=== PATIENT | female | born 1940 | race Caucasian/White ===

== ENCOUNTER → 2017-05-29 | Outpatient (CLI) | payer MEDICARE ==
[~2017-05-29] MED LIST: CENTCHW3 PO; LEVO.075 PO; META28.34 PO; TETR0.052 EACH EYE; TETR0.052 LEFT EYE; THER650C PO; VIVE0.05 T-DERMAL
[2017-05-29 12:29] LABS: AUTOMATED NEUTROPHIL # 3.7 TH/MM3 (1.8-7.7); BASOPHIL % 0.6 % (0.0-2.0); EOSINOPHIL # 0.1 TH/MM3 (0-0.4); EOSINOPHIL % 1.9 % (0.0-4.0); HEMATOCRIT 40.4 % (35.0-46.0); HEMO FLAGS DIFF FINAL; LYMPH % 22.3 % (9.0-44.0); LYMPHOCYTE # 1.3 TH/MM3 (1.0-4.8); MEAN CELL VOLUME 90.5 FL (80.0-100.0); MEAN CORPUSCULAR HEMOGLOBIN 29.9 PG (27.0-34.0); MONO % 9.8 % (0.0-8.0); NEUT % 65.4 % (16.0-70.0); PLATELET COUNT 240 TH/MM3 (150-450); RED BLOOD COUNT 4.47 MIL/MM3 (4.00-5.30); RED CELL DISTRIBUTION WIDTH 13.8 % (11.6-17.2); WHITE BLOOD COUNT 5.7 TH/MM3 (4.0-11.0)
[2017-05-29 12:40] LABS: ANION GAP 3 MEQ/L (5-15); AST (GOT) 23 U/L (15-37); BICARBONATE 32.1 MEQ/L (21.0-32.0); BLOOD UREA NITROGEN 16 MG/DL (7-18); CHLORIDE 105 MEQ/L (98-107); GLOMERULAR FILTRATION RATE 88 ML/MIN (>89); GLUCOSE,FASTING 114 MG/DL (74-99); POTASSIUM 3.7 MEQ/L (3.5-5.1); SODIUM (NA) 140 MEQ/L (136-145)
[2017-05-29 12:43] LABS: ALKALINE PHOSPHATASE 75 U/L (45-117); ALT (GPT) 36 U/L (10-53); TOTAL BILIRUBIN ADULT 0.5 MG/DL (0.2-1.0)
[2017-05-29 12:47] LABS: BACTERIA, URINE RARE /hpf; BLOOD, URINE NEG (NEG); COMMENT (UR) CULT NOT INDICATED; CULTURE IF INDICATED CULT NOT INDICATED; GLUCOSE,URINE NEG (NEG); KETONE, URINE NEG (NEG); NITRITE,URINE NEG (NEG); PH, URINE 6.5 (5.0-8.5); SQUAMOUS EPITHELIAL CELL URINE <1 /hpf (0-5); URINE COLOR LIGHT-YELLOW (YELLW/STRAW)
--- NOTE | 2017-05-30 17:04 | EKG ---
Date Performed: 05/29/2017 Time Performed: 11:41:10 PTAGE: 77 years EKG: SINUS BRADYCARDIA SEPTAL MYOCARDIAL INFARCTION, OF INDETERMINATE AGE ABNORMAL ECG Since PREVIOUS TRACING , no significant change noted PREVIOUS TRACIN02/13/2016 12.07 DOCTOR: Buffy Dyson Interpretating Date/Time 05/30/2017 17:02:54
== END ==
LOC: CPRE 11:20
PROVIDERS: ATTEND Obstetrics & Gynecology Gynecology
DX: Z01.810 Encounter for preprocedural cardiovascular examination (principal); Z01.812 Encounter for preprocedural laboratory examination; N81.11 Cystocele, midline; R94.31 Abnormal electrocardiogram [ECG] [EKG]
CPT/HCPCS: 36415; 80053; 81001; 85025; 93005

== ENCOUNTER → 2017-06-04 | Day surgery (SDC) | payer MEDICARE ==
--- NOTE | 2017-05-29 11:41 | MH ---
cc: SKYLAR MONTEIRO MD, ROXY DATE OF ADMISSION: 06/04/2017 DATE OF 1940 REASON FOR ADMISSION Pelvic repair, possible suspension. HISTORY OF PRESENT ILLNESS The patient is a 76-year-old white female, 2, para 2 who has had multiple prior vaginal reconstructive procedures. 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 She is symptomatic and wants to proceed with repair. PAST MEDICAL HISTORY 1. 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 2. Adult onset diabetes with A1c below 7. 3. Hypertension. 4. Hypoparathyroidism. 5. Mitral valve prolapse. MEDICATIONS 1. Synthroid 75 mcg daily. 2. Estradiol patch q. week. ALLERGIES LACTOSE. LATEX. PAST SURGICAL HISTORY 1. Vaginal hysterectomy. 2. Anterior and posterior repair. 3. Shunt placement for hydrocephalus. 4. Vaginal repair and suspension in 2015. OB HISTORY Two vaginal deliveries. 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 Hysterectomy for benign condition. FAMILY HISTORY Breast cancer in her sister, otherwise unremarkable. SOCIAL HISTORY Does not smokes, use alcohol or drugs. 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 Good social support. REVIEW OF SYSTEMS Some balance in memory issues related to hydrocephalus but these are minimal. No chest pain, orthopnea, PND. No nausea, vomiting, fever or chills. No vaginal bleeding or discharge. No change in bladder or bowel habits. PHYSICAL EXAMINATION VITAL SIGNS: She is afebrile with vital signs stable. Blood pressure is 150/70, height 5.3, weight 129, BMI is 2.2. GENERAL: The patient is alert and oriented, in no acute distress. No sign of cognitive dysfunction or depression. EXTREMITIES: No significant rash. Nonfocal. No DVT signs. PELVIC EXAM: In the office we note POP-Q score: Aa is +3. Point C is -1. Ap is -2. Genital hiatus is 8. Perineal body is 4. Total vaginal length is 10. Levator strength is 2/5. Secondary reflexes are decreased. Further exam under anesthesia. EXTREMITIES: Normal skin, without rashes. Non-focal. No DVT signs. ASSESSMENT Patient with symptomatic Stage III pelvic organ prolapse with a history of multiple prior procedures. The patient and I and her discussed at length the options for management and treatment. She has tried a pessary, with no result; she could not retain the pessary. She wants to maintain vaginal function so an obliterative procedure is not appropriate. We will attempt anterior compartment repair with a possible suspension if need be. She is aware of the risks, benefits and alternatives of the planned procedure including damage to surrounding organs, bleeding and infection. The failure of repair is relatively high here since her prior surgical history has been relatively poor. At this point we will use DVT prophylaxis with sequential compression device. We will use antibiotic prophylaxis with Ancef 2 grams. She has LATEX ALLERGIES so we will use latex protocol. The patient does have some baseline cognitive change related to her normal pressure hydrocephalus but I think she has made informed choice to proceed and is able to give informed consent At this point anticipate outpatient procedure. MD JOSESITO Taylor/SSB /11:09 AM /11:17 AM
[~2017-06-04] VITALS: Ht 160 cm; Wt 57.2 kg
[~2017-06-04] MED LIST changes: +*ENALAPRILAT 1.25 MG/ML VIAL PERIprocedural Use ONLY ONE; +*LABETALOL HCL 100 MG/20 ML VIAL PERIprocedural Use ONLY ONE; +ACETAMINOPHEN 1000 MG/100 ML 100 ML IV ONE; +CHLORHEXIDINE GLUCONATE 2 % 1 PACK (2 CLOTHS) TOPICAL PRN; +DEXAMETHASONE SOD PHOS 4 MG/ML VIAL IV ONE; +DO NOT ADM ANY ANTICOAGULANT DRUGS PRN; +FLUORESCEIN SOD 10% SOLN 500 MG/5 ML AMP ONE; +INSULIN HUMAN REGULAR 1,000 UNITS/10 ML VIAL SQ PRN; +KETOROLAC TROMETHAMINE 30 MG/ML (IVP) VIAL IV PUSH ONE; +KETOROLAC TROMETHAMINE 30 MG/ML (IVP) VIAL IV PUSH PRN; +LACTATED RINGER'S 1000 ML INJ 1,000 ML IV ONE; +LACTATED RINGER'S 1000 ML IV PRN; +LIDOCAINE 1.5%/EPINEPHrine 1:200,000 PF SOLN 10ML SDV INFIL ONE; +LIDOCAINE HCL 1% PF 5 ML AMPULE OTHER ONE; +METHYLENE BLUE 10 MG/ML VIAL OTHER ONE; +METOPROLOL TARTRATE 25 MG TAB PO PRN; +ONDANSETRON HCL 4 MG/2 ML VIAL IV PUSH ONE; +ONDANSETRON HCL 4 MG/2 ML VIAL IV PUSH PRN; +POVIDONE IODINE 5% (ANTISEPSIS KIT) 4 APPLICATIONS EACH NARE PRN; +PROPOFOL 200 MG/20 ML AMP IV ONE; +SODIUM CHLORID 0.9% 500 ML IV PRN; -TETR0.052 EACH EYE; +ceFAZolin 2 GM PREMIX 50 ML IV SCH; +ePHEDrine/NS 25 MG/5 ML SYR IV ONE; +traMADol HCL 50 MG TAB PO PRN
--- NOTE | 2017-06-04 13:26 | MP ---
cc: SKYLAR MONTEIRO MD DATE OF SURGERY 06/04/2017 PREOPERATIVE DIAGNOSES Pelvic organ prolapse anterior compartment predominant. 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 PROCEDURE 1. Sacrospinous ligament fixation right side with Prolene suture. 2. Anterior and posterior repair with perineorrhaphy and enterocele repair. 3. Diagnostic cystoscopy 4. 22 modifier in light of complexity of dissection, length of time of 50% greater than normal for dissection and repair and issues with distortion of anatomy. SURGEON Skylar Monteiro MD ANESTHESIA Laryngeal mask [employer] [place] staff x2 FLUIDS 1000 cc Crystalloid URINE OUTPUT 600 cc. FINDINGS External genitalia poorly estrogenized, POP-Q score: Aa is +3, Ap is +3. Point C is +4. Total vaginal length is 10. Genital hiatus is 8. Perineal body is 4. Following repair Aa is -3, Ap is -3. Point C is -8. Total vaginal length is 8. Genital hiatus is 4. Perineal body is 6. Cystoscopy following repair, normal trigone, good coaptation of urethra, ureteral orifices patent x2. Dome and base of bladder normal. Bladder capacity 600 cc. Rectal exam following repair is normal. SPECIMEN None COMPLICATIONS None DISPOSITION To Recovery Room stable. COUNTS Needle and sponge counts correct. DRAINS Sow catheter ANTIBIOTIC PROPHYLAXIS Ancef 2 grams DVT PROPHYLAXIS Sequential compression device. SUMMARY OF INDICATIONS FOR THE PROCEDURE Patient with a history of prior hysterectomy and prior vaginal suspension done approximately one year ago. She presented to the office with recurrence of anterior compartment prolapse predominant. She is scheduled for anterior compartment repair. With the patient under anesthesia, it was obvious that this was a more global defect involving not just the anterior compartment, but also the middle compartments well as posterior. The patient was prepped and draped in a fashion appropriate for the planned procedure. She was in the dorsal lithotomy position with careful attention paid to placement of legs in the stirrups to avoid undue stress to sensitive neurovascular structures. The above findings noted. Neurovascular integrity documented. Sow catheter was placed, methylene blue was instilled into the bladder. The complete procidentia of the vaginal vault was noted. We placed marking sutures at the apex on each side and then started with dissection of the posterior wall from the fourchette to the stay sutures. There was extensive scarring of enterocele sac to the vaginal mucosa. There is no damage to the rectum with dissection. The perirectal space on the right was identified. The ischial spine was palpated and the sacrospinous ligament identified. A Prolene suture was used to affix the vaginal vault to the sacrospinous ligament. Posterior repair was performed in standard fashion. The vaginal mucosa was trimmed. The vaginal mucosa was closed snf down and then we cinched down the suspension sutures. This gave us good elevation of the apex approximately 8 cm with some deviation to the right. The remainder of the posterior repair was performed with good result. Anterior compartment still had some defect. This was noted and infiltrated the mucosa with epinephrine/lidocaine solution. Reflected the paravesical tissues, anterior repair performed in standard fashion without complication. Delayed absorbable suture was used and mattress type sutures to close the vaginal mucosa. Perineorrhaphy was performed in an attempt to enhance the perineal body and decrease genital hiatus. This was done with delayed absorbable suture with good result. The patient received fluorescein IV. We placed a 17-Ethiopian bridge, a 70 degrees scope. The above findings were noted. Ureteral patency was documented. No damage to the bladder. Rectal exam was normal following repair. The patient reversed anesthesia, taken to the recover room in stable condition. If this patient should have recurrent prolapse especially of the apical compartment at this point she would be probably best suited for a sacrocolpopexy with mesh done laparoscopically or robotically. MD JOSESITO Taylor/MERT /12:25 PM /1:07 PM
[2017-06-04 14:30] VITALS: BP 127/56; PULSE 63; RESP 18; TEMP 96.8; O2SAT 100
== END | disposition home or self-care (01) ==
LOC: HSDC 08:11
PROVIDERS: ATTEND Obstetrics & Gynecology Gynecology
DX: N99.3 Prolapse of vaginal vault after hysterectomy (principal)
CPT/HCPCS: 00942; 57265; 57282; J0131; J0690; J1100; J1885; J2405; J3010; J7120

== ENCOUNTER 2017-12-01 09:18 | Inpatient (IN) | payer MEDICARE ==
[2017-12-01] VITALS (8 sets, daily range): BP systolic 146–230; BP diastolic 64–96; PULSE 54–94; RESP 16–20; TEMP 97.9–98.3; O2SAT 95–100
[~2017-12-01] VITALS: Ht 160 cm; Wt 58.8 kg
[~2017-12-01 09:18] MED LIST changes: -*ENALAPRILAT 1.25 MG/ML VIAL PERIprocedural Use ONLY ONE; -*LABETALOL HCL 100 MG/20 ML VIAL PERIprocedural Use ONLY ONE; -ACETAMINOPHEN 1000 MG/100 ML 100 ML IV ONE; -CHLORHEXIDINE GLUCONATE 2 % 1 PACK (2 CLOTHS) TOPICAL PRN; -DEXAMETHASONE SOD PHOS 4 MG/ML VIAL IV ONE; -DO NOT ADM ANY ANTICOAGULANT DRUGS PRN; -FLUORESCEIN SOD 10% SOLN 500 MG/5 ML AMP ONE; -INSULIN HUMAN REGULAR 1,000 UNITS/10 ML VIAL SQ PRN; -KETOROLAC TROMETHAMINE 30 MG/ML (IVP) VIAL IV PUSH ONE; -KETOROLAC TROMETHAMINE 30 MG/ML (IVP) VIAL IV PUSH PRN; -LACTATED RINGER'S 1000 ML INJ 1,000 ML IV ONE; -LACTATED RINGER'S 1000 ML IV PRN; -LIDOCAINE 1.5%/EPINEPHrine 1:200,000 PF SOLN 10ML SDV INFIL ONE; -LIDOCAINE HCL 1% PF 5 ML AMPULE OTHER ONE; -METHYLENE BLUE 10 MG/ML VIAL OTHER ONE; -METOPROLOL TARTRATE 25 MG TAB PO PRN; -ONDANSETRON HCL 4 MG/2 ML VIAL IV PUSH ONE; -ONDANSETRON HCL 4 MG/2 ML VIAL IV PUSH PRN; -POVIDONE IODINE 5% (ANTISEPSIS KIT) 4 APPLICATIONS EACH NARE PRN; -PROPOFOL 200 MG/20 ML AMP IV ONE; -SODIUM CHLORID 0.9% 500 ML IV PRN; -ceFAZolin 2 GM PREMIX 50 ML IV SCH; -ePHEDrine/NS 25 MG/5 ML SYR IV ONE; -traMADol HCL 50 MG TAB PO PRN
[2017-12-01] MEDS ORDERED: IOHEXOL 350 MG/ML 10 ML VIAL (for RAD DIAG) IVCONTRAST ONE (09:19)
[2017-12-01] MEDS ORDERED: SODIUM CHLORIDE 0.9% FLUSH 10 ML FLUSH IV FLUSH PRN ×3 (10:00→16:15)
[2017-12-01] MEDS ORDERED: ONDANSETRON HCL 4 MG/2 ML VIAL IV PUSH ONE (10:00)
[2017-12-01 10:15] LABS: BASOPHIL % 0.2 % (0.0-2.0); EOSINOPHIL # 0.1 TH/MM3 (0-0.4); EOSINOPHIL % 0.6 % (0.0-4.0); HEMATOCRIT 39.4 % (35.0-46.0); HEMOGLOBIN 13.8 GM/DL (11.6-15.3); LYMPH % 10.6 % (9.0-44.0); LYMPHOCYTE # 0.9 TH/MM3 (1.0-4.8); MEAN CELL VOLUME 88.6 FL (80.0-100.0); MEAN CORPUSCULAR HEMOGLOBIN 31.2 PG (27.0-34.0); MEAN CORPUSCULAR HGB CONC 35.2 % (32.0-36.0); MEAN PLATELET VOLUME 7.8 FL (7.0-11.0); MONO % 5.8 % (0.0-8.0); MONOCYTE # 0.5 TH/MM3 (0-0.9); NEUT % 82.8 % (16.0-70.0); PLATELET COUNT 218 TH/MM3 (150-450); RED BLOOD COUNT 4.45 MIL/MM3 (4.00-5.30); RED CELL DISTRIBUTION WIDTH 13.9 % (11.6-17.2); WHITE BLOOD COUNT 8.4 TH/MM3 (4.0-11.0)
--- NOTE | 2017-12-01 10:22 | RADRPT ---
EXAM DATE/TIME: 12/01/2017 09:50 [facility] COMPARISON: No previous studies available for comparison. INDICATIONS : Difficulty speaking and walking since last night. 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 ENCOUNTER: Initial ACUITY: 1 day PAIN SCALE: 0/10 LOCATION: cranial TECHNIQUE: Multiple contiguous axial images were obtained of the head. Using automated exposure control and adj ustment of the mA and/or kV according to patient size, radiation dose was kept as low as reasonably a chievable to obtain optimal diagnostic quality images. DICOM format image data is available electro nically for review and comparison. FINDINGS: CEREBRUM: A right frontal ventriculostomy tube is in place. There is no significant dilatation of the ventricle s or subarachnoid space. Focal left frontal encephalomalacia is identified. There is an overlying pleasure craft sailor niotomy defect. No evidence of midline shift, mass lesion, hemorrhage or acute infarction. No extra- axial fluid collections are seen. POSTERIOR FOSSA: The cerebellum and brainstem are intact. The 4th ventricle is midline. The cerebellopontine angle i s unremarkable. EXTRACRANIAL: The visualized portion of the orbits is intact. SKULL: The calvaria is intact. No evidence of skull fracture. CONCLUSION: 1. 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 2. No significant ventricular dilatation. 3. Left frontal encephalomalacia with overlying craniotomy defect. 4. No evidence of acute infarct, hemorrhage, mass or edema. Evan Bonilla MD on December 01, 2017 at 9:53 Board Certified Radiologist. This report was verified electronically.
[2017-12-01 10:28] LABS: INTERNATIONAL NORMALIZED RATIO 1.1 RATIO
[2017-12-01 10:38] LABS: ALBUMIN 3.9 GM/DL (3.4-5.0); AST (GOT) 17 U/L (15-37); BICARBONATE 30.6 MEQ/L (21.0-32.0); BLOOD UREA NITROGEN 12 MG/DL (7-18); CALCIUM 8.9 MG/DL (8.5-10.1); CHLORIDE 101 MEQ/L (98-107); CREATININE 0.77 MG/DL (0.50-1.00); GLOMERULAR FILTRATION RATE 73 ML/MIN (>89); GLUCOSE,RANDOM 208 MG/DL (74-106); SODIUM (NA) 137 MEQ/L (136-145)
[2017-12-01 10:52] LABS: ALKALINE PHOSPHATASE 71 U/L (45-117); ALT (GPT) 28 U/L (10-53); TOTAL BILIRUBIN ADULT 0.5 MG/DL (0.2-1.0); TOTAL PROTEIN 7.5 GM/DL (6.4-8.2); TROPONIN I LESS THAN 0.02 NG/ML (0.02-0.05)
--- NOTE | 2017-12-01 11:08 | RADRPT ---
EXAM DATE/TIME: 12/01/2017 10:48 [facility] COMPARISON: No previous studies available for comparison. INDICATIONS : Syncope. Slurred speech and dizziness. MEDICAL HISTORY : None. SURGICAL HISTORY : OPERATIONS ADMINISTRATOR shunt. ENCOUNTER: Initial ACUITY: 2 days PAIN SCORE: 0/10 LOCATION: Bilateral chest FINDINGS: A single view of the chest demonstrates the lungs to be symmetrically aerated without evidence of mas s, infiltrate or effusion. The cardiomediastinal contours are unremarkable. Osseous structures are intact. Shunt catheter tubing is projected over the right side of the chest. CONCLUSION: No acute disease. Elroy Maier MD on December 01, 2017 at 11:05 Board Certified Radiologist. This report was verified electronically.
--- NOTE | 2017-12-01 11:31 | RADRPT ---
EXAM DATE/TIME: 12/01/2017 10:45 [facility] COMPARISON: No previous studies available for comparison. INDICATIONS : Dizziness with vision loss. MEDICAL HISTORY : None. SURGICAL HISTORY : AIRLINE PILOT shunt. ENCOUNTER: Initial ACUITY: 2 days PAIN SCORE: 0/10 LOCATION: Body. FINDINGS: Radiograph of the skull, neck, chest and abdomen performed to evaluate shunt patency. The shunt cath eter is seen entering the right parietal region with its tip in the midline. The catheter is continuous in its course terminating in the abdomen. No catheter disruption is identi fied. The visualized heart, lungs and abdominal structures are intact. CONCLUSION: Intact shunt. Elroy Maier MD on December 01, 2017 at 11:27 Board Certified Radiologist. This report was verified electronically.
[2017-12-01] MEDS ORDERED: METOCLOPRAMIDE INJ 10 MG in SODIUM CHLORIDE 0.9% INJ 50 ML IV ONE (11:45)
[2017-12-01] MEDS ORDERED: hydrALAZINE HCL 20 MG/ML VIAL IV PUSH ONE (12:00)
--- NOTE | 2017-12-01 12:07 | RADRPT ---
EXAM DATE/TIME: 12/01/2017 11:20 [facility] COMPARISON: CT BRAIN W/O CONTRAST, December 01, 2017, 9:50. INDICATIONS : Possible stroke, left sided weakness and facial droop IV CONTRAST: 75 cc Omnipaque 350 (iohexol) IV ; Cumulative dose for multiple exams. RADIATION DOSE: 9.69 CTDIvol (mGy) ; Combined studies MEDICAL HISTORY : Cardiovascular disease. Diabetes mellitus type 1. SURGICAL HISTORY : Craniotomy. Hysterectomy. ENCOUNTER: Initial ACUITY: 1 day PAIN SCALE: 0/10 LOCATION: cranial TECHNIQUE: Volumetric scanning was performed using a multi-row detector CT scanner. The data was post processed with a variety of visualization algorithms including full volume maximum intensity projection, multi -planar sliding thin slab reformation, curved planar reformation, and surface rendering techniques. Using automated exposure control and adjustment of the mA and/or kV according to patient size, radiat ion dose was kept as low as reasonably achievable to obtain optimal diagnostic quality images. DICO M format image data is available electronically for review and comparison. FINDINGS: There is subtotal occlusion of the proximal aspect of one of the right MCA branch vessels and mild ad jacent presumed atherosclerotic narrowing in the distal right MCA trunk. The contralateral left MCA i s grossly unremarkable. The anterior cerebrals are unremarkable. The posterior circulation is intact with note of origin of the right posterior cerebral artery. The right vertebral artery is dimin utive and may terminate in the PICA. There is no evidence of aneurysm or vascular malformation. CONCLUSION: Focal proximal occlusive disease involving one of the right MCA branch vessels. Mild intrinsic athero sclerotic vascular disease elsewhere. Alex Mitchell MD on December 01, 2017 at 11:58 Board Certified Radiologist. This report was verified electronically.
--- NOTE | 2017-12-01 12:20 | PD ---
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 Her says that last night she got very dizzy and was unable to walk. This morning she complained of weakness. Her family says that she has been weak on her left side since waking up this morning. She says she does not know what's wrong, she just feels weak all over. She denies chest pain or shortness of breath. She denies fever or chills. She denies headache or head injury. Severity is mild to moderate. PFSH Past Medical History Autoimmune Disease: No Blood Disorders: No Cancer: No Cardiovascular Problems: Yes (MITRAL VALVE PROLAPSE) Chemotherapy: No Diabetes: Yes (diet controled/NIDDM) Patient Takes Glucophage: No Endocrine: Yes (TAKING SYNTHROID) Glaucoma: Yes Genitourinary: Yes (HX UTI, VAGINA PROLAPSE, BLADDER PROLASPE) Hepatitis: No Hiatal Hernia: No Immune Disorder: No Musculoskeletal: Yes (osteopina) Neurologic: Yes (shunt on r side 2011, NORMAL PRESSURE HYDROCEHPHALIS) Psychiatric: No Reproductive: No Respiratory: No Radiation Therapy: No Thyroid Disease: Yes Tetanus Vaccination: > 5 Years Influenza Vaccination: Yes Past Surgical History Abdominal Surgery: No AICD: No Body Medical Devices: shunt in r side of head Cardiac Surgery: No Ear Surgery: No Endocrine Surgery: Yes (THYROID RADIATION DRINK IN 1991) Eye Surgery: Yes (cataract surgery both eyes) Genitourinary Surgery: Yes (BLADDER LIFT) Gynecologic Surgery: Yes (HYSTERECTOMY IN 1991) Hysterectomy: Yes (1992) Joint Replacement: No Neurologic Surgery: Yes (CRAINIOTOMY & SHUNT PLACEMENT) Oral Surgery: No Pacemaker: No Thoracic Surgery: No Other Surgery: Yes (CRAINIOTOMY FOR BRAIN TUMOR IN 2001) Social History Alcohol Use: No Tobacco Use: No Substance Use: No Allergies-Medications (Allergen,Severity, Reaction): Coded Allergies: lactose (Verified Allergy, Intermediate, Diarrhea, 12/01/17) latex (Verified Allergy, Intermediate, Rash, 12/01/17) *MDRO Multi-Drug Resistant Organism (Verified Adverse Reaction, Unknown, ) ESBL+E.Coli (urine-02/2016) Reported Meds & Prescriptions Reported Meds & Active Scripts Active Reported Theracran Hp (Cranberry (Vaccinium Macrocarpon)) 650 Mg Cap 1 Cap PO DAILY Centrum Silver (Multiple Vitamins W/ Minerals) 1 Chw Chw 1 Tab PO DAILY Vivelle-Dot Patch 84 HR (Estradiol) 0.05 Mg/24 Hr Patch 1 Patch T-DERMAL 2XWEEK Remove old patch and discard when new patch being placed. Change same days each week. Tetrahydrozoline Opth Drops 0.05 % Soln 1-2 Drop LEFT EYE QID PRN Synthroid (Levothyroxine Sodium) 75 Mcg Tab 75 Mcg PO DAILY Metamucil Smooth Texture (Psyllium Hydrophilic Mucilloid) 28.3 % Pow 1 Scoop PO TID PRN 1 rounded TEASPOON in 8 oz of liquid at the first sign of irregularity. Review of Systems Except as stated in HPI: all other systems reviewed are Neg General / Constitutional: No: Fever, Chills Eyes: Positive: Blurred Vision HENT: Positive: Lightheadedness, No: Headaches Cardiovascular: No: Chest Pain or Discomfort Respiratory: No: Cough, Shortness of Breath Gastrointestinal: Positive: Nausea, No: Abdominal Pain Neurologic: Positive: Weakness, Dizziness Physical Exam Narrative GENERAL: Awake and alert, in no acute distress. SKIN: Focused skin assessment warm/dry. No wounds or signs of infection. HEAD: Atraumatic. Normocephalic. EYES: Pupils equal and round and reactive. No scleral icterus. Extraocular movements intact. ENT: No nasal bleeding or discharge. Mucous membranes pink and moist. NECK: Trachea midline. No JVD. CARDIOVASCULAR: Regular rate and rhythm. No murmur appreciated. RESPIRATORY: No accessory muscle use. Clear to auscultation. Breath sounds equal bilaterally. GASTROINTESTINAL: Abdomen soft, non-tender, nondistended. MUSCULOSKELETAL: No obvious deformities. No clubbing. No cyanosis. No edema. NEUROLOGICAL: Awake and alert. No obvious cranial nerve deficits. Motor grossly within normal limits. Normal speech. PSYCHIATRIC: Appropriate mood and affect; insight and judgment normal. Data Data Last Documented VS Vital Signs Date Time Temp Pulse Resp B/P (MAP) Pulse Ox O2 Delivery O2 Flow Rate FiO2 12/01/17 12:20 94 18 160/74 (102) 96 Room Air Orders Orders Complete Blood Count With Diff (12/01/17 09:48) Comprehensive Metabolic Panel (12/01/17 09:48) Creatine Kinase (Cpk) (12/01/17 09:48) Prothrombin Time / Inr (Pt) (12/01/17 09:48) Act Partial Throm Time (Ptt) (12/01/17 09:48) Troponin I (12/01/17 09:48) Urinalysis - C+S If Indicated (12/01/17 09:48) Chest, Single Ap (12/01/17 09:48) Ct Brain W/O Iv Contrast(Rout) (12/01/17 09:48) Blood Glucose (12/01/17 09:48) Ecg Monitoring (12/01/17 09:48) Iv Access Insert/Monitor (12/01/17 09:48) Oximetry (12/01/17 09:48) Sodium Chloride 0.9% Flush (Ns Flush) (12/01/17 10:00) Shunt Series (12/01/17 ) Ondansetron Inj (Zofran Inj) (12/01/17 10:00) Electrocardiogram (12/01/17 09:42) Cta Brain W Iv Contrast W 3d (12/01/17 ) Cta Neck W Iv Contrast W 3d (12/01/17 ) Iohexol 350 Inj (Omnipaque 350 Inj) (12/01/17 09:19) Metoclopramide Inj (Reglan Inj) (12/01/17 11:45) Hydralazine Inj (Apresoline Inj) (12/01/17 12:00) Admit Order (Ed Use Only) (12/01/17 ) Admit To Inpatient (12/01/17 ) Nih Stroke Scale - Nihss .On admission and discharge (12/01/17 12:22) Consult Pt Eval & Tx Oob (12/01/17 12:22) Case Management Consult (12/01/17 ) Activity Bed Rest (12/01/17 12:22) Nursing Bedside Swallow Assess .ONCE (12/01/17 12:22) Scd Bilateral/Knee High TOM.QSHIFT (12/01/17 12:22) Diet Npo (12/01/17 Lunch) Hemoglobin (Hgb) A1c (12/01/17 12:22) Lipid Profile (12/02/17 06:00) Us Carotid Arteries Comp Bilat (12/01/17 ) Mra Brain W/O Contrast (Cow) (12/01/17 ) Mri Brain W/O Contrast (12/01/17 ) Echo 2d Comp With Doppler (12/01/17 ) Resp Oxygen Nc Stroke (12/01/17 ) ^ Hold Medication (12/01/17 12:22) Consult Neurology (12/01/17 ) Sodium Chloride 0.9% Flush (Ns Flush) (12/01/17 21:00) Sodium Chloride 0.9% Flush (Ns Flush) (12/01/17 12:30) Dextrose 50% In [place] (Vial) Inj (D50w (Vi (12/01/17 12:30) Glucagon Inj (Glucagon Inj) (12/01/17 12:30) Consult Rehab Medicine (12/01/17 12:22) Management Consulting / Telemetry TOM.Q8H (12/01/17 12:22) Consult Stroke Navigator (12/01/17 ) Inpatient Certification (12/01/17 ) Labs Laboratory Tests Test 12/01/17 09:40 White Blood Count 8.4 TH/MM3 Red Blood Count 4.45 MIL/MM3 Hemoglobin 13.8 GM/DL Hematocrit 39.4 % Mean Corpuscular Volume 88.6 FL Mean Corpuscular Hemoglobin 31.2 PG Mean Corpuscular Hemoglobin Concent 35.2 % Red Cell Distribution Width 13.9 % Platelet Count 218 TH/MM3 Mean Platelet Volume 7.8 FL Neutrophils (%) (Auto) 82.8 % Lymphocytes (%) (Auto) 10.6 % Monocytes (%) (Auto) 5.8 % Eosinophils (%) (Auto) 0.6 % Basophils (%) (Auto) 0.2 % Neutrophils # (Auto) 7.0 TH/MM3 Lymphocytes # (Auto) 0.9 TH/MM3 Monocytes # (Auto) 0.5 TH/MM3 Eosinophils # (Auto) 0.1 TH/MM3 Basophils # (Auto) 0.0 TH/MM3 CBC Comment DIFF FINAL Differential Comment Prothrombin Time 11.0 SEC Prothromb Time International Ratio 1.1 RATIO Activated Partial Thromboplast Time 24.0 SEC Blood Urea Nitrogen 12 MG/DL Creatinine 0.77 MG/DL Random Glucose 208 MG/DL Total Protein 7.5 GM/DL Albumin 3.9 GM/DL Calcium Level 8.9 MG/DL Alkaline Phosphatase 71 U/L Aspartate Amino Transf (AST/SGOT) 17 U/L Alanine Aminotransferase (ALT/SGPT) 28 U/L Total Bilirubin 0.5 MG/DL Sodium Level 137 MEQ/L Potassium Level 3.6 MEQ/L Chloride Level 101 MEQ/L Carbon Dioxide Level 30.6 MEQ/L Anion Gap 5 MEQ/L Estimat Glomerular Filtration Rate 73 ML/MIN Total Creatine Kinase 93 U/L Troponin I LESS THAN 0.02 NG/ML MDM Medical Decision Making Medical Screen Exam Complete: Yes Emergency Medical Condition: Yes Medical Record Reviewed: Yes Interpretation(s) ECG shows normal sinus rhythm at a rate of 68, no ST elevation or depression, normal interval. Differential Diagnosis Stroke versus shunt malfunction versus ICH versus electrolyte abnormality Narrative Course Patient is a 77-year-old female who comes in complaining of possible strokelike symptoms. On exam, there are no neurologic abnormalities currently. IV established, labs sent. CT head performed shows no acute abnormalities. Labs show no acute abnormalities. Shunt series performed shows the shunt to be intact. I spoke with Dr. Bellamy, of neurology, regarding the patient. He suggests admission for further stroke workup. Patient was hypertensive, given a dose of hydralazine. She also experienced some nausea and vomiting after CTA, so she was given antiemetics. Diagnosis Primary Impression: CVA (cerebral vascular accident) Qualified Codes: I63.9 - Cerebral infarction, unspecified Admitting Information Admitting Physician Requests: Admit Carie Green MD Dec 01, 2017 12:20
[2017-12-01] MEDS ORDERED: DEXTROSE 50% IN WATER 50 ML VIAL(D50) IV PUSH PRN ×2 (12:30→16:15)
[2017-12-01] MEDS ORDERED: GLUCAGON 1 MG/ML VIAL OTHER PRN ×2 (12:30→16:15)
--- NOTE | 2017-12-01 12:43 | RADRPT ---
EXAM DATE/TIME: 12/01/2017 11:20 [facility] COMPARISON: No previous studies available for comparison. INDICATIONS : Possible stroke, left sided weakness and facial droop IV CONTRAST: 75 cc Omnipaque 350 (iohexol) IV RADIATION DOSE: 9.69 CTDIvol (mGy) ; Combined studies MEDICAL HISTORY : Cardiovascular disease. Diabetes mellitus type 1. SURGICAL HISTORY : Hysterectomy. Craniotomy. ENCOUNTER: Initial ACUITY: 1 day PAIN SCALE: 0/10 LOCATION: cranial Elevated flow velocities and ICA/CCA ratios have been found to correlate with increased degrees of vessel stenosis, calculated as percentage of diameter relative to a normal segment of distal ICA/CCA. TECHNIQUE: Volumetric scanning was performed using a multirow detector CT scanner. The data was post processed with a variety of visualization algorithms including full-volume maximum intensity projection, multip lanar sliding thin-slab reformation, curved-planar reformation, and surface-rendering techniques. Us ing automated exposure control and adjustment of the mA and/or kV according to patient size, radiatio n dose was kept as low as reasonably achievable to obtain optimal diagnostic quality images. DICOM f ormat image data is available electronically for review and comparison. FINDINGS: AORTIC ARCH: There is a three-vessel origin of the great vessels from the aorta. No evidence of ostial narrowing. RIGHT CAROTID: The common carotid artery is intact. The carotid bulb has a normal configuration without ulceration o r narrowing. The internal carotid artery lumen is smooth without stenosis. The external carotid sherrell ry is intact. LEFT CAROTID: The common carotid artery is intact. The carotid bulb has a normal configuration without ulceration or narrowing. Moderate focal stenosis is noted within the left proximal internal carotid artery appro ximately 2.4 cm distal to the bifurcation. The external carotid artery is intact. VERTEBRALS: The vertebral arteries have a symmetric diameter. No stenotic lesions are seen. CONCLUSION: Moderate focal stenosis involving the left proximal internal carotid artery approxima tely 2.4 cm distal to the bifurcation. Rios Walden MD on December 01, 2017 at 12:37 Board Certified Radiologist. This report was verified electronically.
--- NOTE | 2017-12-01 14:17 | HHI.HP ---
[facility] Primary Care Physician Elizabeth Dietz MD Admission Diagnosis CVA Diagnoses: Travel History International Travel<30 Days: No Contact w/Intl Traveler <30 Da: No Traveled to Known Affected Are: No History of Present Illness 7830 last night, dizziness felt all weak cant stand' all over body was very weak, cant walk to bathroom had to help her bathroom felt so bad all night History from patient with family members at the bedside, ER physician communication, and review of medical records. Patient is an elderly lady who lives at home with her . She is awake, alert, oriented and sharp and is able to give most of her medical history. Patient reported that last night at around 10:30 PM, she just was not feeling well. She started feeling severe dizziness and severe muscle weakness all over her body. She stated that her had to help her go to bathroom and walk around and finally pretty bad. She stated she was not able to sleep even after this. She felt extremely weak and dizzy. She woke up a few times during the night and again had to hold her to get to bathroom. She is usually ambulatory without any assistance at her baseline. This morning, when she woke up, she still has the same symptoms and was not able to walk. has to help her with going to bathroom and bringing her food into the bed. Her kids and finally came over and when they saw her, they noted that she has left upper extremity weakness with slurred speech. The therefore called PCP office and was told to come to emergency room. drove her to the hospital. Patient reports that she currently is also still feeling quite dizzy and uncomfortable. She states she is sick to her stomach but she does not think that it was nausea. Apart from the above,patient denies any symptoms on review of system preceding last night's events. She has not driven lately though. She has had right ankle sprain about 8 weeks ago. Review of Systems Except as stated in HPI: all other systems reviewed are Neg Past Family Social History Past Medical History DM- diet controlled NPH- shunt Mitral Valve prolapse Hypothyroidism- from radioactive iodine Brain tumor- 2001- removed- but small piece was left due to anatomy- at [facility] s/p BUCKET WASH OPERATOR shunt for NPH- 2011- non programmable shunt- [facility] Dr [place] Denies history of hypertension/CAD/CHF/atrial fibrillation/COPD/liver problem/ kidney problems/blood clots/stroke/seizures/cancer Past Surgical History BUCKET WASH OPERATOR shunt Craniotomy Hysterectomy Surgery for bladder prolapse/rectocele Cataract surgery Allergies: Coded Allergies: lactose (Verified Allergy, Intermediate, Diarrhea, 12/01/17) latex (Verified Allergy, Intermediate, Rash, 12/01/17) *MDRO Multi-Drug Resistant Organism (Verified Adverse Reaction, Unknown, ) ESBL+E.Coli (urine-02/2016) Family History mother- cancer- cervical vs ovarian dad- strokes Social History no smoking/ no drinking etoh / no drugs Physical Exam Vital Signs Vital Signs Date Time Temp Pulse Resp B/P (MAP) Pulse Ox O2 Delivery O2 Flow Rate FiO2 12/01/17 12:54 99 21 12/01/17 12:51 78 18 158/67 (97) 100 Room Air 12/01/17 12:20 94 18 160/74 (102) 96 Room Air 12/01/17 11:44 80 18 230/96 (140) 96 Room Air 12/01/17 09:57 54 18 195/93 (127) 97 Room Air 12/01/17 09:55 60 18 96 Room Air Physical Exam GENERAL: This is a elderly lady, looks quite weak. Mostly closing her eyes during interview because of dizziness. Very pleasant SKIN: No rashes, ecchymoses or lesions. Cool and dry. HEAD: Atraumatic. Normocephalic. No temporal or scalp tenderness. EYES:No scleral icterus. No injection or drainage. ENT: Nose without bleeding, purulent drainage or septal hematoma. Airway patent. NECK: Trachea midline. No JVD. Supple, nontender, no meningeal signs. CARDIOVASCULAR: Regular rate and rhythm without murmurs, gallops, or rubs. RESPIRATORY: Clear to auscultation. Breath sounds equal bilaterally. No wheezes , rales, or rhonchi. GASTROINTESTINAL: Abdomen soft, non-tender, nondistended. No guarding. MUSCULOSKELETAL: Extremities without clubbing, cyanosis, or edema. No calf tenderness. NEUROLOGICAL: Awake and alert. Cranial nerves II through XII intact. Left upper extremity and left lower extremity slightly weaker than the right.. Slurred speech Laboratory Laboratory Tests Test 12/01/17 09:40 White Blood Count 8.4 Red Blood Count 4.45 Hemoglobin 13.8 Hematocrit 39.4 Mean Corpuscular Volume 88.6 Mean Corpuscular Hemoglobin 31.2 Mean Corpuscular Hemoglobin Concent 35.2 Red Cell Distribution Width 13.9 Platelet Count 218 Mean Platelet Volume 7.8 Neutrophils (%) (Auto) 82.8 Lymphocytes (%) (Auto) 10.6 Monocytes (%) (Auto) 5.8 Eosinophils (%) (Auto) 0.6 Basophils (%) (Auto) 0.2 Neutrophils # (Auto) 7.0 Lymphocytes # (Auto) 0.9 Monocytes # (Auto) 0.5 Eosinophils # (Auto) 0.1 Basophils # (Auto) 0.0 CBC Comment DIFF FINAL Differential Comment Prothrombin Time 11.0 Prothromb Time International Ratio 1.1 Activated Partial Thromboplast Time 24.0 Blood Urea Nitrogen 12 Creatinine 0.77 Random Glucose 208 Total Protein 7.5 Albumin 3.9 Calcium Level 8.9 Alkaline Phosphatase 71 Aspartate Amino Transf (AST/SGOT) 17 Alanine Aminotransferase (ALT/SGPT) 28 Total Bilirubin 0.5 Sodium Level 137 Potassium Level 3.6 Chloride Level 101 Carbon Dioxide Level 30.6 Anion Gap 5 Estimat Glomerular Filtration Rate 73 Total Creatine Kinase 93 Troponin I LESS THAN 0.02 Result Diagram: 12/01/1740 12/01/17 0940 Caprini VTE Risk Assessment Caprini VTE Risk Assessment: Mod/High Risk (score >= 2) Caprini Risk Assessment Model Point Value = 1 Point Value = 2 Point Value = 3 Point Value = 5 Age 41-60 Minor surgery BMI > 25 kg/m2 Swollen legs Varicose veins or History of unexplained or recurrent spontaneous Oral contraceptives or hormone replacement Sepsis (< 1 month) Serious lung disease, including pneumonia (< 1 month) Abnormal pulmonary function Acute myocardial infarction Congestive heart failure (< 1 month) History of inflammatory bowel disease Medical patient at bed rest Age 61-74 Arthroscopic surgery Major open surgery (> 45 min) Laparoscopic surgery (> 45 min) Malignancy Confined to bed (> 72 hours) Immobilizing plaster cast Central venous access Age >= 75 History of VTE Family history of VTE Factor V Leiden Prothrombin [id number] Lupus anticoagulant Anticardiolipin antibodies Elevated serum homocysteine Heparin-induced thrombocytopenia Other congenital or acquired thrombophilia Stroke (< 1 month) Elective arthroplasty Hip, pelvis, or leg fracture Acute spinal cord injury (< 1 month) Prophylaxis Regimen Total Risk Factor Score Risk Level Prophylaxis Regimen 0-1 Low Early ambulation 2 Moderate Order ONE of the following: *Sequential Compression Device (SCD) *Heparin 5000 units SQ BID 3-4 Higher Order ONE of the following medications: *Heparin 5000 units SQ TID *Enoxaparin/Lovenox 40 mg SQ daily (WT < 150 kg, CrCl > 30 mL/min) *Enoxaparin/Lovenox 30 mg SQ daily (WT < 150 kg, CrCl > 10-29 mL/min) *Enoxaparin/Lovenox 30 mg SQ BID (WT < 150 kg, CrCl > 30 mL/min) AND/OR *Sequential Compression Device (SCD) 5 or more Highest Order ONE of the following medications: *Heparin 5000 units SQ TID (Preferred with Epidurals) *Enoxaparin/Lovenox 40 mg SQ daily (WT < 150 kg, CrCl > 30 mL/min) *Enoxaparin/Lovenox 30 mg SQ daily (WT < 150 kg, CrCl > 10-29 mL/min) *Enoxaparin/Lovenox 30 mg SQ BID (WT < 150 kg, CrCl > 30 mL/min) AND *Sequential Compression Device (SCD) Assessment and Plan Assessment and Plan Impression: CVA DM- diet controlled NPH- s/p BUCKET WASH OPERATOR shunt- 2011- non programmable shunt- [facility] Dr Holt Brain tumor- 2001- removed- but small piece was left due to anatomy- at [facility] Mitral Valve prolapse Hypothyroidism- from radioactive iodine treatment for hyperactive thyroid Plan: Permissive hypertension. Nothing by mouth. Start patient on D5 normal saline at 84 cc per hour. Neurology consult. Speech therapy consult. Head CT Personally reviewed. No evidence of hemorrhage/infarct/mass effect. CTA of the neck personally reviewed. Reports moderate focal stenosis involving the left proximal internal carotid Shunt studies reviewed. Intact. Telemetry monitoring. Echocardiogram in a.m. Obtain ultrasound of lower extremities to rule out DVT in this lady with limited ambulatory status in the past 16 weeks due to ankle sprain/surgery for rectal prolapse/bladder prolapse. Since patient does not have obvious cause for CVA such as A. fib/hypertension, would be careful with DVTs/PFO combination causing CVA. Give aspirin full dose rectally. Further anticoagulation per neurology. Resume home meds. DVT prophylaxis with Lovenox. Discussed Condition With Patient, ER physician, nursing staff, patient's family members at the bedside Physician Certification 2 Midnight Certification Type: Admission for Inpatient Services Order for Inpatient Services The services are ordered in accordance with Medicare regulations or non- Medicare payer requirements, as applicable. In the case of services not specified as inpatient-only, they are appropriately provided as inpatient services in accordance with the 2-midnight benchmark. Estimated LOS (days): 2 days is the estimated time the patient will need to remain in the hospital, assuming treatment plan goals are met and no additional complications. Post-Hospital Plan: Not yet determined Rochelle Joy MD Dec 01, 2017 14:17
[2017-12-01] MEDS ORDERED: ASPIRIN 300 MG SUPP RECTAL ONE (14:30)
[2017-12-01] MEDS ORDERED: TETRAHYDROZOLINE LEFT EYE PRN ×2 (14:45→16:45)
[2017-12-01] MEDS ORDERED: NON-FORMULARY DRUG (Estradiol-Dot Patch 84 HR (Vivelle-Dot Patch 84 HR) 1 PATCH) T-DERMAL SCH (14:45)
[2017-12-01] MEDS ORDERED: DEXT 5%-NACL 0.9% 1000 ML INJ 1,000 ML IV SCH (15:15)
--- NOTE | 2017-12-01 15:34 | RADRPT ---
EXAM DATE/TIME: 12/01/2017 14:06 [facility] COMPARISON: No previous studies available for comparison. INDICATIONS : Syncope. MEDICAL HISTORY : Thyroid disease. Glaucoma. Mitral valve prolapse. Brain tumor. UTI. SURGICAL HISTORY : Hysterectomy. Craniotomy. Catatact surgery. ENCOUNTER: Initial ACUITY: 1 day PAIN SCORE: 0/10 LOCATION: Bilateral neck PEAK SYSTOLIC VELOCITIES (cm/sec): ICA/CCA RATIO: Right: 0.7 Left: 0.5 ICA: Right: 74 Left: 69 CCA: Right: 103 Left: 141 ECA: Right: 94 Left: 109 VERTEBRAL: Right: 47 antegrade Left: 52 antegrade Elevated flow velocities and ICA/CCA ratios have been found to correlate with increased degrees of vessel stenosis, calculated as percentage of diameter relative to a normal segment of distal ICA/CCA FINDINGS: Minimal heterogeneous plaque with intimal thickening is identified. RIGHT CAROTID: No significant stenosis is visualized. The waveforms are within normal limits. LEFT CAROTID: No significant stenosis is visualized. The waveforms are within normal limits. VERTEBRAL ARTERIES: Antegrade flow is seen in both vertebral arteries. MISCELLANEOUS: None. CONCLUSION: 1. Minimal heterogeneous plaque and intimal thickening characteristic of bilateral atherosclerotic di sease. 2. No evidence of hemodynamically significant stenosis. 3. Antegrade flow both vertebral arteries. Evan Bonilla MD on December 01, 2017 at 15:30 Board Certified Radiologist. This report was verified electronically.
--- NOTE | 2017-12-01 15:59 | RADRPT ---
EXAM DATE/TIME: 12/01/2017 15:18 [facility] COMPARISON: No previous studies available for comparison. INDICATIONS : Bilateral leg swelling. MEDICAL HISTORY : Thyroid disease. Glaucoma. Mitral valve prolapse. Brain tumor. UTI. Hydrocephalus. Vagina and bladder prolapse. Osteopina. Diabetes. ESBL+E.coli. SURGICAL HISTORY : Hysterectomy.Craniotomy. Bilateral cataract surgery. Shunt in head. Right fifth digit surgery. Thyroi d radiation. ENCOUNTER: Initial ACUITY: 1 week PAIN SCORE: 0/10 LOCATION: Bilateral leg. TECHNIQUE: Venous ultrasound of the left and right leg was performed from the inguinal ligament to the proximal calf. Real-time, color Doppler and spectral tracing, compression and augmentation techniques were us ed. FINDINGS: RIGHT LEG: There is normal compressibility of the deep venous system from the inguinal region to the proximal ca lf. No echogenic clot is seen in the lumen of the common femoral, femoral, popliteal, and posterior tibial veins. There is a normal response of the venous system to proximal and distal augmentation an d respiration. LEFT LEG: There is normal compressibility of the deep venous system from the inguinal region to the proximal ca lf. No echogenic clot is seen in the lumen of the common femoral, femoral, popliteal, and posterior tibial veins. There is a normal response of the venous system to proximal and distal augmentation an d respiration. CONCLUSION: Normal examination. Alex Mitchell MD on December 01, 2017 at 15:56 Board Certified Radiologist. This report was verified electronically.
[2017-12-01] MEDS: ENOXAPARIN SODIUM 40 MG/0.4 ML SYRINGE SQ SCH (16:34)
--- NOTE | 2017-12-01 16:34 | MB ---
cc: Bennett Bellamy MD, PhD DATE: 12/01/2017 REASON FOR CONSULTATION: Stroke. HISTORY OF PRESENT ILLNESS: Ms. Trujillo is a 77-year-old woman who yesterday evening developed acute onset of dizziness and generalized weakness. She was noted earlier this morning to have weakness on the left side and was brought to the hospital. PAST MEDICAL HISTORY: Remarkable for hypothyroidism, history of benign brain tumor removed in the past with some residual and probably meningioma, BACTERIOLOGIST SOIL shunt for NPH, mitral valve prolapse, surgery for bladder prolapse, cataract surgery. ALLERGIES: LATEX, LACTOSE. MEDICATIONS: Currently, she is started on aspirin 300 mg suppository once daily, Lovenox 40 mg subq daily, Synthroid, multivitamin. PHYSICAL EXAMINATION: VITAL SIGNS: Blood pressure 146/64, pulse 74, respirations 20, temperature 98 degrees. NEUROLOGIC: Higher cortical function, she is alert, oriented, follows commands. Speech intact. Cranial nerves normal. On motor exam, she is weak in the left arm and left leg, rated at 4/5 proximal and distal with normal strength on the right. Reflexes are symmetric. DIAGNOSTIC DATA: CT of the brain, no acute changes identified. There is evidence for left frontal encephalomalacia with overlying craniotomy defect. Ventriculostomy is identified and a BACTERIOLOGIST SOIL shunt is placed. There is no ventricular dilatation, no acute change, no hemorrhage identified. CTA of the head shows focal occlusion of the right proximal MCA branch. CTA of the neck, no evidence of any significant carotid artery stenosis. Vertebral arteries, no stenosis identified. Moderate focal stenosis is seen in the left proximal ICA. Carotid ultrasound, minimal plaquing, no significant stenosis. LABORATORY DATA: The white count is 8400, hemoglobin 13.8, hematocrit 39%, platelet count 218,000. PT 11, INR 1.1, aPTT 24. Sodium is 137, potassium 3.6, chloride 101, CO2 is 30.6, the BUN is 12, creatinine 0.77, GFR 73, glucose 208, AST is 17, ALT is 28. EKG normal sinus rhythm. IMPRESSION: 1. Right middle cerebral artery distribution stroke. 2. History of benign tumor resection from the left frontal lobe. RECOMMENDATION: Start aspirin 325 mg daily. We will obtain MRI of the brain, echocardiogram, lipid panel. Consult rehabilitation medicine. Bennett Bellamy MD, PhD EDMUND/LEONCIO , 04:13 PM , 04:33 PM
[2017-12-01] MEDS: SODIUM CHLOR 0.9% 1000 ML INJ 1,000 ML IV SCH (17:23)
[2017-12-01] MEDS: INSULIN ASPART SUPPLEMENTAL SCALE SQ SCH ×2 (17:27→21:00)
[2017-12-01 19:43] LABS: BILIRUBIN, URINE NEG (NEG); BLOOD, URINE NEG (NEG); GLUCOSE,URINE 300 mg/dL (NEG); KETONE, URINE 40 mg/dL (NEG); MUCUS URINE FEW /lpf (OCC); NITRITE,URINE NEG (NEG); SQUAMOUS EPITHELIAL CELL URINE 1 /hpf (0-5); URINE COLOR LIGHT-YELLOW (YELLW/STRAW); URINE LEUKOCYTE ESTERASE NEG (NEG)
--- NOTE | 2017-12-01 20:08 | RADRPT ---
EXAM DATE/TIME: 12/01/2017 19:30 [facility] COMPARISON: No previous studies available for comparison. INDICATIONS : Pre MRI, check for setting on shunt. MEDICAL HISTORY : None. SURGICAL HISTORY : None. ENCOUNTER: Initial ACUITY: 1 day PAIN SCORE: 0/10 LOCATION: skull. FINDINGS: Spot film reveals a non-programmable shunt. CONCLUSION: 1. Non-programmable shunt identified. George Stark MD on December 01, 2017 at 20:04 Board Certified Radiologist. This report was verified electronically.
[2017-12-01] MEDS ORDERED: SODIUM CHLORIDE 0.9% FLUSH 10 ML FLUSH IV FLUSH SCH (21:00)
[2017-12-01] MEDS: SODIUM CHLORIDE 0.9% FLUSH 10 ML FLUSH IV FLUSH SCH (21:30)
--- NOTE | 2017-12-01 21:31 | RADRPT ---
EXAM DATE/TIME: 12/01/2017 20:04 [facility] COMPARISON: CT BRAIN W/O CONTRAST, December 01, 2017, 9:50. INDICATIONS : CVA. Left sided weakness and dizziness. MEDICAL HISTORY : Hypertension. Diabetes mellitus type 2. Carcinoma, thyroid. Brain tumor SURGICAL HISTORY : OUTSIDE PRODUCTION INSPECTOR shunt (non programable), Bladder lift. ENCOUNTER: Initial ACUITY: 1 day PAIN SCORE: 4/10 LOCATION: Left cranial TECHNIQUE: Multiplanar, multisequence MRI of the brain was performed without contrast. FINDINGS: There is a right-sided ventriculostomy tubes with tip in main left lateral ventricle. There small infarcts in the deep white matter of the right temporal lobe measuring up to 1.5 cm in di ameter as well as 2 small subcentimeter infarcts in right basal ganglia. There is a mass in the area of septum pellucidum measuring up to 1.9 cm in diameter. No prior study a vailable for comparison. CONCLUSION: 1. Small infarcts in the deep white matter of the right temporal lobe and posterior right basal gangl ia as above. 2. Right ventriculostomy tube tip in the left lateral ventricle. 3. Mass near the septum pellucidum measures up to 1.9 cm in diameter and has a heterogeneous appearan ce. Contrast not administered. Differential diagnosis includes glioma. Reportedly there is a history of brain tumor. George Stark MD on December 01, 2017 at 21:24 Board Certified Radiologist. This report was verified electronically.
--- NOTE | 2017-12-01 21:34 | RADRPT ---
EXAM DATE/TIME: 12/01/2017 20:04 [facility] COMPARISON: No previous studies available for comparison. INDICATIONS : CVA. MEDICAL HISTORY : Hypertension. Diabetes mellitus type 2. Carcinoma, thyroid. Brain tumor. SURGICAL HISTORY : Non programable GARNET[employer] MECH[employer] shunt, Bladder lift. ENCOUNTER: Initial ACUITY: 1 day PAIN SCORE: 5/10 LOCATION: Bilateral cranial Please note a normal MRA of the brain does not entirely exclude the possibility of a small aneurysm, nor the possibility of distal intracranial vessel disease. TECHNIQUE: 3D time of flight MRA was performed. Source images, multiplanar STS MIP, and 3D volume MIP reconstru ctions were reviewed. FINDINGS: There is a probable moderate stenosis of the proximal right middle cerebral artery with a questionabl e small 3 mm aneurysm present in the trifurcation. This would be better evaluated with CTA. Also mild stenosis proximal left middle cerebral artery. Basilar artery and distal internal carotids are patent. Posterior cerebral and enters through arteries are patent. CONCLUSION: 1. Mild to moderate stenosis of both proximal middle cerebral arteries. Questionable small 3 mm aneur ysm near the right MCA trifurcation. This would be better evaluated with CTA. George Stark MD on December 01, 2017 at 21:29 Board Certified Radiologist. This report was verified electronically.
[2017-12-02] VITALS (10 sets, daily range): BP systolic 140–195; BP diastolic 67–82; PULSE 55–80; RESP 18; TEMP 97.3–98.8; O2SAT 95–99
--- NOTE | 2017-12-02 00:05 | EKG ---
Date Performed: 12/01/2017 Time Performed: 09:42:45 PTAGE: 77 years EKG: Sinus rhythm NORMAL ECG PREVIOUS TRACING : 05/29/2017 11.41 DOCTOR: Pete Smiley Interpretating Date/Time 12/02/2017 00:00:10
[2017-12-02] MEDS: LEVOTHYROXINE SODIUM 75 MCG TAB PO SCH (06:19)
[2017-12-02] MEDS: INSULIN ASPART SUPPLEMENTAL SCALE SQ SCH ×4 (08:00→20:23)
[2017-12-02] MEDS: MULTIVITAMINS/MINERALS THERAPEUTIC TAB PO SCH (09:00)
[2017-12-02] MEDS ORDERED: ASPIRIN 300 MG SUPP RECTAL SCH (09:00)
[2017-12-02] MEDS: SODIUM CHLORIDE 0.9% FLUSH 10 ML FLUSH IV FLUSH SCH ×2 (09:00→20:24)
[2017-12-02 09:12] LABS: CHOLESTEROL/ HDL RATIO 2.63 RATIO; HDL CHOLESTEROL 68.8 MG/DL (40.0-60.0)
[2017-12-02] MEDS ORDERED: ASPIRIN 325 MG TAB PO SCH (09:15)
[2017-12-02] MEDS: SODIUM CHLOR 0.9% 1000 ML INJ 1,000 ML IV SCH (11:45)
--- NOTE | 2017-12-02 14:46 | ECHRPT ---
Indication: CVA/TIA CONCLUSIONS The left ventricular systolic function is normal with an estimated ejection fraction in the range of 60-65%. Wall thickness is normal. Normal left ventricular size. Mild mitral valve regurgitation. There is moderate tricuspid regurgitation. The estimated pulmonary arterial pressure is 40 mmHg. BP: 171 / 74 HR: 59 Rhythm: Other MEASUREMENTS (Male / Female) Normal Values Technical Quality:Good 2D ECHO LV Diastolic Diameter PLAX 4.1 cm 4.2 - 5.9 / 3.9 - 5.3 cm LV Systolic Diameter PLAX 2.9 cm IVS Diastolic Thickness 0.9 cm 0.6 - 1.0 / 0.6 - 0.9 cm LVPW Diastolic Thickness 0.9 cm 0.6 - 1.0 / 0.6 - 0.9 cm LV Relative Wall Thickness 0.4 LVOT Diameter 2.0 cm M-MODE Aortic Root Diameter MM 2.6 cm LA Systolic Diameter MM 3.0 cm LA Ao Ratio MM 1.2 AV Cusp Separation MM 2.0 cm DOPPLER AV Peak Velocity 143.0 cm/s AV Peak Gradient 8.2 mmHg LVOT Peak Velocity 139.0 cm/s LVOT Peak Gradient 7.7 mmHg AV Area Cont Eq pk 3.1 cm MR Peak Velocity 471.0 cm/s MR Peak Gradient 88.7 mmHg Mitral E Point Velocity 98.7 cm/s Mitral A Point Velocity 89.3 cm/s Mitral E to A Ratio 1.1 LV E' Lateral Velocity 6.1 cm/s Mitral E to LV E' Lateral Ratio 16.1 LV E' Septal Velocity 6.0 cm/s Mitral E to LV E' Septal Ratio 16.3 TR Peak Velocity 274.0 cm/s TR Peak Gradient 30.0 mmHg Right Atrial Pressure 10.0 mmHg Pulmonary Artery Systolic Pressu 40.0 mmHg Right Ventricular Systolic Press 40.0 mmHg PV Peak Velocity 90.9 cm/s PV Peak Gradient 3.3 mmHg FINDINGS LEFT VENTRICLE The left ventricular systolic function is normal with an estimated ejection fraction in the range of 60-65%. Wall thickness is normal. Normal left ventricular size. RIGHT VENTRICLE Normal right ventricular size and systolic function. LEFT ATRIUM The left atrial size is normal. RIGHT ATRIUM The right atrial size is normal. ATRIAL SEPTUM Normal atrial septal thickness without atrial level shunting by limited color doppler interrogation. AORTA The aortic root and proximal ascending aorta are normal in size on limited imaging. MITRAL VALVE Mild mitral valve regurgitation. AORTIC VALVE Trileaflet aortic valve. No aortic valve stenosis or regurgitation. TRICUSPID VALVE There is moderate tricuspid regurgitation. The estimated pulmonary arterial pressure is 40 mmHg. PULMONARY VALVE No pulmonary valve regurgitation or stenosis. VESSELS The inferior vena cava is normal in size. PERICARDIUM No pericardial effusion. Grabiel Ortega MD, FACC, [facility] (Electronically Signed) Final Date:02 December 2017 14:44
[2017-12-02] MEDS ORDERED: GADODIAMIDE PF 287 MG/ML 5 ML VIAL (for RAD MRI) IVCONTRAST ONE (15:16)
--- NOTE | 2017-12-02 15:57 | RADRPT ---
EXAM DATE/TIME: 12/02/2017 15:07 [place] COMPARISON: CT BRAIN W/O CONTRAST, December 01, 2017, 9:50. MRA BRAIN W/O CONTRAST, December 01, 2017, 20:04. CTA BRA IN W 3D RECON, December 01, 2017, 11:20. INDICATIONS : Mass. Left sided weakness and dizziness. CONTRAST: 12 cc Omniscan (gadodiamide) IV MEDICAL HISTORY : Diabetes mellitus type 2. Hypertension. Brain tumor. Shunt placed for NPH. SURGICAL HISTORY : Shunt placement and bladder lift. ENCOUNTER: Subsequent ACUITY: 2 day PAIN SCORE: 2/10 LOCATION: head. TECHNIQUE: Multiplanar, multisequence MRI of the brain was performed both prior to and following the administrat ion of paramagnetic contrast. FINDINGS: The right-sided ventriculostomy enters through the frontal region. There is thickening and enhancemen t of the meninges consistent with shunted condition. There is encephalomalacia in the mid to high con vexity left frontal region extending from the frontal horn of left lateral ventricle. There is residu al heterogeneous enhancing mass in the anterior body and frontal horn of the left lateral ventricle. There is no significant ventricular dilatation. There are several small areas of focally restricted diffusion involving the right putamen and adjacen t medial temporal region consistent with areas of subacute infarction area in There is no evidence of intracranial hemorrhage. The extracranial structures are otherwise grossly benign intact. CONCLUSION: Subacute right hemispheric strokes. 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 This report was verified electronically.
[2017-12-02] MEDS: CLOPIDOGREL 75 MG TAB PO SCH (16:36)
[2017-12-02] MEDS: ENOXAPARIN SODIUM 40 MG/0.4 ML SYRINGE SQ SCH (17:08)
[2017-12-02] MEDS ORDERED: cloNIDine HCL 0.1 MG TAB PO PRN (18:30)
--- NOTE | 2017-12-02 19:35 | HHI.PR ---
Subjective Remarks Follow up for right sided MCA stroke. Patient is doing well. However, she complains of worsening left arm weakness. No fever, chills. Family at bedside. Objective Vitals Vital Signs Date Time Temp Pulse Resp B/P (MAP) Pulse Ox O2 Delivery O2 Flow Rate FiO2 12/02/17 16:20 98.4 60 18 191/79 (116) 96 12/02/17 11:34 98.8 58 18 174/75 (108) 97 12/02/17 10:37 95 21 12/02/17 07:47 98.4 59 18 171/74 (106) 98 12/02/17 04:13 98.3 69 18 195/82 (119) 99 12/02/17 03:41 64 12/02/17 00:35 98.0 80 18 168/70 (102) 96 12/01/17 22:58 98.3 71 18 176/77 (110) 95 I/O 12/01/17 12/01/17 12/01/17 12/02/17 12/02/17 12/02/17 07:00 15:00 23:00 07:00 15:00 23:00 # Voids 1 4 Result Diagram: 12/01/17 0940 12/01/17 0940 Imaging Last Impressions Brain MRI 12/02/17 0000 Signed Impressions: Service Date/Time: Saturday, December 02, 2017 15:07 - CONCLUSION: Subacute right hemispheric strokes. 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 2. No significant ventricular dilatation. 3. Left frontal encephalomalacia with overlying craniotomy defect. 4. No evidence of acute infarct, hemorrhage, mass or edema. Evan Bonilla MD Chest X-Ray 12/01/17 0948 Signed Impressions: Service Date/Time: Friday, December 01, 2017 10:48 - CONCLUSION: No acute disease. Elroy Maier MD Skull X-Ray 12/01/17 0000 Signed Impressions: Service Date/Time: Friday, December 01, 2017 19:30 - CONCLUSION: 1. Non-programmable shunt identified. George Stark MD Shunt Study (Imaging) 12/01/17 0000 Signed Impressions: Service Date/Time: Friday, December 01, 2017 10:45 - CONCLUSION: Intact shunt. Elroy Maier MD Neck CTA 12/01/17 Signed Impressions: Service Date/Time: Friday, December 01, 2017 11:20 - CONCLUSION: Moderate focal stenosis involving the left proximal internal carotid artery approximately 2.4 cm distal to the bifurcation. Rios Walden MD Lower Extremity Ultrasound 12/01/17 0000 Signed Impressions: Service Date/Time: Friday, December 01, 2017 15:18 - CONCLUSION: Normal examination. Alex Mitchell MD Head Magnetic Resonance Angiography 12/01/17 Signed Impressions: Service Date/Time: Friday, December 01, 2017 20:04 - CONCLUSION: 1. Mild to moderate stenosis of both proximal middle cerebral arteries. Questionable small 3 mm aneurysm near the right MCA trifurcation. This would be better evaluated with CTA. George Stark MD Head CTA 12/01/17 Signed Impressions: Service Date/Time: Friday, December 01, 2017 11:20 - CONCLUSION: Focal proximal occlusive disease involving one of the right MCA branch vessels. Mild intrinsic atherosclerotic vascular disease elsewhere. Alex Mitchell MD Carotid Artery Ultrasound 12/01/17 0000 Signed Impressions: Service Date/Time: Friday, December 01, 2017 14:06 - CONCLUSION: 1. Minimal heterogeneous plaque and intimal thickening characteristic of bilateral atherosclerotic disease. 2. No evidence of hemodynamically significant stenosis. 3. Antegrade flow both vertebral arteries. Evan Bonilla MD Objective Remarks GENERAL: AOx3, NAD. SKIN: Warm and dry. HEAD: Normocephalic. EYES: No scleral icterus. No injection or drainage. NECK: Supple, trachea midline. No JVD or lymphadenopathy. CARDIOVASCULAR: Regular rate and rhythm without murmurs, gallops, or rubs. RESPIRATORY: Breath sounds equal bilaterally. No accessory muscle use. GASTROINTESTINAL: Abdomen soft, non-tender, nondistended. MUSCULOSKELETAL: No cyanosis, or edema. Left arm 0/5, Right arm 5/5. Left lower ext 3/5, RLE 5/5. BACK: Nontender without obvious deformity. No CVA tenderness. Procedures Echo 12/02/2017 The left ventricular systolic function is normal with an estimated ejection fraction in the range of 60-65%. Wall thickness is normal. Normal left ventricular size. Mild mitral valve regurgitation. There is moderate tricuspid regurgitation. The estimated pulmonary arterial pressure is 40 mmHg. A/P Problem List: (1) Acute right MCA stroke ICD Code: I63.511 - Cerebral infarction due to unspecified occlusion or stenosis of right middle cerebral artery (2) Hypothyroidism ICD Code: E03.9 - Hypothyroidism, unspecified (3) HTN (hypertension) ICD Code: I10 - Essential (primary) hypertension Assessment and Plan Ms. Trujillo is a pleasant 77 year old female with a history of HTN, hypothyroidism who was admitted to the hospital due to dizziness, generalized weakness. She also had left sided weakness which prompted this hospital admission. Imaging studies indicated acute stroke in the right MCA area. 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 Bellamy (Neurology) following. I discussed with Dr. Bellamy. - Will switch to Low dose ASA and Plavix. Also start PPI. - Another MRI with and without contrast - shows subacute right MCA stroke and intraventricular mass. - Continue PT, OT, Speech - Will not discharge patient to [place] today. - Echo results reviewed - normal EF. Continue Telemetry. - Hypertension - Hypothyroidism - BP is in the 190s. Will provide Clonidine PRN and start patient on Nifedipine 30mg Qday. - Continue Levothyroxine. Full code. Lovenox. Discharge plan: Probable discharge to [facility] on 12/03/2017. Kelsey Shah DO Dec 02, 2017 19:35
--- NOTE | 2017-12-02 20:57 | HHI.PR ---
Review/Management Diagnosis right hemisphere CVA. Add plavix due to worsening sx, MRI today without change Residual tumor--benign by report. Diagnosis/Plan: Subjective Subjective Comments Pt c/o decrease left visual field , left sided weakness worse Active Medications Current Medications Medications (Trade) Dose Ordered Sig/Cielo Route Start Time Stop Time Status Last Admin (Synthroid) 75 mcg DAILY@0600 PO 12/02/17 06:00 12/02/17 06:19 (Theragran M Tab) 1 tab DAILY PO 12/02/17 09:00 12/02/17 09:00 (Lovenox Inj) 40 mg Q24H SQ 12/01/17 16:00 12/02/17 17:08 (NS Flush) 2 ml BID IV FLUSH 12/01/17 21:00 12/02/17 20:24 (NS Flush) 2 ml UNSCH PRN IV FLUSH 12/01/17 16:15 (NovoLOG SUPPLEMENTAL SCALE) 1 ACHS SQ 12/01/17 17:00 (D50w (Vial) Inj) 50 ml UNSCH PRN IV PUSH 12/01/17 16:15 (Glucagon Inj) 1 mg UNSCH PRN OTHER 12/01/17 16:15 Patient Own Medication PT OWN MED: TETRAHYDROLOZINE OPTH LORI... QID PRN LEFT EYE 12/01/17 16:45 Future Hold Patient Own Medication PT OWN MED: ESTRADIOL DOT PATCH(VIVELLE... SuWe@0900 TOPICAL 12/03/17 09:00 Future Hold (Plavix) 75 mg DAILY PO 12/02/17 14:15 12/02/17 16:36 (Ecotrin Ec) 81 mg DAILY PO 12/03/17 09:00 (Protonix) 40 mg DAILY PO 12/03/17 09:00 (Procardia Xl) 30 mg DAILY PO 12/03/17 09:00 (Catapres) 0.1 mg Q6H PRN PO 12/02/17 18:30 12/02/17 20:24 Allergies Allergies Coded Allergies lactose (Verified Allergy, Intermediate, Diarrhea, 12/01/17) latex (Verified Allergy, Intermediate, Rash, 12/01/17) *MDRO Multi-Drug Resistant Organism (Verified Adverse Reaction, Unknown, ) Exam I&O / VS Vital Signs Date Time Temp Pulse Resp B/P (MAP) Pulse Ox O2 Delivery O2 Flow Rate FiO2 12/02/17 16:20 98.4 60 18 191/79 (116) 96 12/02/17 11:34 98.8 58 18 174/75 (108) 97 12/02/17 10:37 95 21 12/02/17 07:47 98.4 59 18 171/74 (106) 98 12/02/17 04:13 98.3 69 18 195/82 (119) 99 12/02/17 03:41 64 12/02/17 00:35 98.0 80 18 168/70 (102) 96 12/01/17 22:58 98.3 71 18 176/77 (110) 95 Exam Comments alert, speech dysarthric Cn left hemianopsia. perrl MOTOR 1/5 LUE, 5/5 RUE, 1/5 LLE, 5/5 RLE Objective Radiology Results MRI brain with contrast--residual intraventricular tumor. right hemisphere cva without change, no bleed Micro and Labs Laboratory Tests Test 12/02/17 07:10 Triglycerides Level 90 Cholesterol Level 181 LDL Cholesterol 94 HDL Cholesterol 68.8 Cholesterol/HDL Ratio 2.63 Diagnostic Tests ECHO--normal carotid US--no significant stenosis Bennett Bellamy MD PhD Dec 02, 2017 20:57
[2017-12-03] VITALS: BP 123/63; PULSE 51; PULSE 61; RESP 18; TEMP 98; O2SAT 95
[2017-12-03] MEDS: LEVOTHYROXINE SODIUM 75 MCG TAB PO SCH ×2 (05:02→05:03)
[2017-12-03 06:26] VITALS: BP 158/67; PULSE 51; RESP 18; TEMP 98.7; O2SAT 95
[2017-12-03 08:00] VITALS: PULSE 46
[2017-12-03] MEDS: INSULIN ASPART SUPPLEMENTAL SCALE SQ SCH ×2 (08:00→11:27)
[2017-12-03 08:19] VITALS: BP 177/70; PULSE 46; RESP 18; TEMP 97.8; O2SAT 96
[2017-12-03] MEDS: SODIUM CHLORIDE 0.9% FLUSH 10 ML FLUSH IV FLUSH SCH (08:32)
[2017-12-03] MEDS: MULTIVITAMINS/MINERALS THERAPEUTIC TAB PO SCH (08:34)
[2017-12-03] MEDS: CLOPIDOGREL 75 MG TAB PO SCH (08:34)
[2017-12-03] MEDS ORDERED: NIFEdipine 30 MG SUSTAINED RELEASE TAB PO SCH (09:00)
[2017-12-03] MEDS ORDERED: ASPIRIN EC 81 MG TABEC PO SCH (09:00)
[2017-12-03] MEDS ORDERED: PANTOPRAZOLE SOD 40 MG DELAYED RELEASE TAB PO SCH (09:00)
[2017-12-03] MEDS ORDERED: ESTRADIOL TOPICAL SCH (09:00)
--- NOTE | 2017-12-03 09:35 | MB ---
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 REVIEW OF SYSTEMS: Otherwise, denies any chest pain, fever, chills, cough, pain, orthopnea, . PAST MEDICAL HISTORY: Per History of Present Illness. She has a history of noninsulin dependent diabetes mellitus, hypothyroidism, vaginal prolapse UTI, bladder prolapse, osteopenia, cataract surgery, bladder lift, hysterectomy. SOCIAL HISTORY: Denies tobacco or alcohol use. ALLERGIES: LACTOSE AND LATEX. MEDICATIONS PRIOR TO ADMISSION: Theragran, centrum, Vivelle-Dot patch 84, tetrahydrozoline, Synthroid, Metamucil. MEDICATIONS: Aspirin 81 mg a day, pantoprazole 40 mg daily, nifedipine 30 mg daily, clonidine p.r.n., clopidogrel 75 mg daily, multivitamins, levothyroxine, insulin, Lovenox 47 subcutaneous every 24 hours. PHYSICAL EXAMINATION: VITAL SIGNS: Blood pressure 179/77, pulse 59, temperature 98.3, respiratory rate 18. GENERAL: She is lethargic, oriented x 3, in no acute distress. NECK: Supple. No JVD. No bruit. CARDIOVASCULAR: S1, S2 normal. No murmurs, rubs or gallops. PULMONARY: Lungs clear to auscultation bilaterally. ABDOMEN: Soft, nontender, nondistended, with positive bowel sounds. EXTREMITIES: No lower extremity edema. LABORATORY DATA: White count 8.4, hemoglobin 13.8, hematocrit 39.4, platelet count 218. Sodium 137, potassium 3.6, chloride 101, bicarbonate 30.6, BUN 12, creatinine 0.77, glucose 208. LFTs normal. Troponin 0.02. LDL 94. INR is 1.1. IMAGIN. She had a skull x-ray, shows nonprogrammable shunt identified. 2. Shunt study, intact shunt. 3. CTA, moderate focal stenosis involving the left proximal internal carotid artery approximately 2.4 cm distal to the bifurcation. Lower extremity ultrasound, normal examination. Head MRA, mild to moderate stenosis of both proximal and middle cerebral arteries, questionable small 3 mm aneurysm near the right MCA trifurcation. Head CTA, focal proximal occlusive disease involving one of the right MCA branch vessels. Mild intrinsic and atherosclerotic vascular disease elsewhere. Carotid ultrasound, minimal heterogeneous plaque and intimal thickening characteristic of bilateral atherosclerotic disease. Brain MRI, small infarcts in the deep white matter of the right temporal lobe and posterior right basal ganglia, right ventriculostomy tube tip in the left lateral ventricle, mass to the septum pellucidum measured up 1.9 cm in diameter and has a heterogeneous appearance. Differential diagnosis includes glioma. Head CT, ventriculostomy from a ventriculoperitoneal shunt is identified. Left frontal encephalomalacia with overlying craniotomy defect. Chest x-ray, no acute disease. Brain MRI repeat, subacute right hemispheric strokes, intraventricular mass, which is presumably a known residual post previous left frontal craniotomy, ventricular shunt placement, ventricular dilatation. ELECTROCARDIOGRAM: Normal sinus rhythm at 68 beats per minute, anteroseptal Q-waves. ECHOCARDIOGRAM: EF 60-65%, mild MR, moderate TR, PA pressure of 40. SHE HAS THE FOLLOWING DIAGNOSES: 1. Cerebrovascular accident. 2. Carotid stenosis. 3. Pulmonary hypertension. 4. Brain mass. DISCUSSION: At this point in time, she is being appropriately treated with aspirin and Plavix per Neurology. Her LDL was at goal below 100, it is at 94. Recommend continued telemetry monitoring. I will continue to follow. MD TIMMY Dorantes/ADEEL , 11:25 PM , 12:01 AM
--- NOTE | 2017-12-03 10:21 | HHI.PR ---
Objective Vitals Vital Signs Date Time Temp Pulse Resp B/P (MAP) Pulse Ox O2 Delivery O2 Flow Rate FiO2 12/03/17 08:19 97.8 46 18 177/70 (105) 96 12/03/17 08:00 46 12/03/17 06:26 98.7 51 18 158/67 (97) 95 12/03/17 00:00 98.0 61 18 123/63 (83) 95 12/03/17 00:00 51 12/02/17 23:00 97.3 55 18 140/67 (91) 95 12/02/17 21:00 98.3 59 18 179/77 (111) 12/02/17 20:00 60 12/02/17 16:20 98.4 60 18 191/79 (116) 96 12/02/17 11:34 98.8 58 18 174/75 (108) 97 12/02/17 10:37 95 21 I/O 12/02/17 12/02/17 12/02/17 12/03/17 12/03/17 12/03/17 06:59 14:59 22:59 06:59 14:59 22:59 # Voids 4 5 Result Diagram: 12/01/17 0940 12/01/17 0940 Objective Remarks GENERAL: AOx3, NAD. SKIN: Warm and dry. HEAD: Normocephalic. EYES: No scleral icterus. No injection or drainage. NECK: Supple, trachea midline. No JVD or lymphadenopathy. CARDIOVASCULAR: Regular rate and rhythm without murmurs, gallops, or rubs. RESPIRATORY: Breath sounds equal bilaterally. No accessory muscle use. GASTROINTESTINAL: Abdomen soft, non-tender, nondistended. MUSCULOSKELETAL: No cyanosis, or edema. Left arm 0/5, Right arm 5/5. Left lower ext 3/5, RLE 5/5. BACK: Nontender without obvious deformity. No CVA tenderness. Procedures Echo 12/02/2017 The left ventricular systolic function is normal with an estimated ejection fraction in the range of 60-65%. Wall thickness is normal. Normal left ventricular size. Mild mitral valve regurgitation. There is moderate tricuspid regurgitation. The estimated pulmonary arterial pressure is 40 mmHg. A/P Problem List: (1) Acute right MCA stroke ICD Code: I63.511 - Cerebral infarction due to unspecified occlusion or stenosis of right middle cerebral artery Status: Acute (2) Hypothyroidism ICD Code: E03.9 - Hypothyroidism, unspecified Status: Chronic (3) HTN (hypertension) ICD Code: I10 - Essential (primary) hypertension Status: Acute Assessment and Plan Ms. Trujillo is a pleasant 77 year old female with a history of HTN, hypothyroidism who was admitted to the hospital due to dizziness, generalized weakness. She also had left sided weakness which prompted this hospital admission. Imaging studies indicated acute stroke in the right MCA area. 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 Bellamy (Neurology) following. I discussed with Dr. Bellamy. - Will switch to Low dose ASA and Plavix. Also start PPI. - Another MRI with and without contrast - shows subacute right MCA stroke and intraventricular mass. - Continue PT, OT, Speech - Will not discharge patient to [place] today. - Echo results reviewed - normal EF. Continue Telemetry. - Hypertension - Hypothyroidism - BP is in the 190s. Will provide Clonidine PRN and start patient on Nifedipine 30mg Qday. - Continue Levothyroxine. Full code. Lovenox. Discharge plan: Probable discharge to [facility] on 12/03/2017. Kelsey Shah DO Dec 03, 2017 10:21
[2017-12-03] MEDS ORDERED: PLAV75TA29 PO (11:55)
[2017-12-03] MEDS ORDERED: ECASA81 PO (11:55)
[2017-12-03 12:00] VITALS: PULSE 81
[2017-12-03 12:05] VITALS: BP 129/60; PULSE 68; RESP 18; TEMP 98.2; O2SAT 96
--- NOTE | 2017-12-03 15:00 | PD.CARD.PN ---
Subjective Subjective Remarks asleep in nad Objective Medications Current Medications Medications (Trade) Dose Ordered Sig/Cielo Route Start Time Stop Time Status Last Admin (Synthroid) 75 mcg DAILY@0600 PO 12/02/17 06:00 12/03/17 05:03 (Theragran M Tab) 1 tab DAILY PO 12/02/17 09:00 12/03/17 08:34 (Lovenox Inj) 40 mg Q24H SQ 12/01/17 16:00 12/02/17 17:08 (NS Flush) 2 ml BID IV FLUSH 12/01/17 21:00 12/03/17 08:32 (NS Flush) 2 ml UNSCH PRN IV FLUSH 12/01/17 16:15 (NovoLOG SUPPLEMENTAL SCALE) 1 ACHS SQ 12/01/17 17:00 (D50w (Vial) Inj) 50 ml UNSCH PRN IV PUSH 12/01/17 16:15 (Glucagon Inj) 1 mg UNSCH PRN OTHER 12/01/17 16:15 Patient Own Medication PT OWN MED: TETRAHYDROLOZINE OPTH LORI... QID PRN LEFT EYE 12/01/17 16:45 Future Hold Patient Own Medication PT OWN MED: ESTRADIOL DOT PATCH(VIVELLE... SuWe@0900 TOPICAL 12/03/17 09:00 Future Hold (Plavix) 75 mg DAILY PO 12/02/17 14:15 12/03/17 08:34 (Ecotrin Ec) 81 mg DAILY PO 12/03/17 09:00 12/03/17 08:34 (Protonix) 40 mg DAILY PO 12/03/17 09:00 12/03/17 08:34 (Procardia Xl) 30 mg DAILY PO 12/03/17 09:00 12/03/17 08:34 (Catapres) 0.1 mg Q6H PRN PO 12/02/17 18:30 12/02/17 20:24 Vital Signs / I&O Vital Signs Date Time Temp Pulse Resp B/P (MAP) Pulse Ox O2 Delivery O2 Flow Rate FiO2 12/03/17 12:05 98.2 68 18 129/60 (83) 96 12/03/17 12:00 81 12/03/17 08:19 97.8 46 18 177/70 (105) 96 12/03/17 08:00 46 12/03/17 06:26 98.7 51 18 158/67 (97) 95 12/03/17 00:00 98.0 61 18 123/63 (83) 95 12/03/17 00:00 51 12/02/17 23:00 97.3 55 18 140/67 (91) 95 12/02/17 21:00 98.3 59 18 179/77 (111) 12/02/17 20:00 60 12/02/17 16:20 98.4 60 18 191/79 (116) 96 I/O 12/02/17 12/02/17 12/02/17 12/03/17 12/03/17 12/03/17 07:00 15:00 23:00 07:00 15:00 23:00 # Voids 4 5 Physical Exam GENERAL: SKIN: Warm and dry. HEAD: Normocephalic. EYES: No scleral icterus. No injection or drainage. NECK: Supple, trachea midline. No JVD or lymphadenopathy. CARDIOVASCULAR: Regular rate and rhythm without murmurs, gallops, or rubs. RESPIRATORY: Breath sounds equal bilaterally. No accessory muscle use. GASTROINTESTINAL: Abdomen soft, non-tender, nondistended. MUSCULOSKELETAL: No cyanosis, or edema. BACK: Nontender without obvious deformity. No CVA tenderness. Assessment and Plan Problem List: (1) Carotid stenosis ICD Codes: I65.29 - Occlusion and stenosis of unspecified carotid artery (2) CVA (cerebral vascular accident) ICD Codes: I63.9 - Cerebral infarction, unspecified Status: Acute (3) HTN (hypertension) ICD Codes: I10 - Essential (primary) hypertension (4) Hypothyroidism ICD Codes: E03.9 - Hypothyroidism, unspecified (5) Acute right MCA stroke ICD Codes: I63.511 - Cerebral infarction due to unspecified occlusion or stenosis of right middle cerebral artery Assessment and Plan 1.) Carotid stenosis - continue aspirin 81 mg per neurology, ldl=94 and at goal off meds, ok to transfer to [place] [facility] from cv standpoint Problem Qualifiers (1) CVA (cerebral vascular accident): Qualified Codes: I63.9 - Cerebral infarction, unspecified Grabiel Ortega MD Dec 03, 2017 15:00
[2017-12-03 19:27] LABS: HEMOGLOBIN A1C 6.3 % (4.3-6.0)
--- NOTE | 2017-12-03 19:43 | HHI.DS ---
Discharge Summary Admission Date Dec 01, 2017 at 12:24 Discharge Date: Dec 03, 2017 Admitting Diagnosis CVA (1) Acute right MCA stroke ICD Code: I63.511 - Cerebral infarction due to unspecified occlusion or stenosis of right middle cerebral artery Status: Acute (2) Hypothyroidism ICD Code: E03.9 - Hypothyroidism, unspecified Status: Chronic (3) HTN (hypertension) ICD Code: I10 - Essential (primary) hypertension Status: Acute Procedures Echo 12/02/2017 The left ventricular systolic function is normal with an estimated ejection fraction in the range of 60-65%. Wall thickness is normal. Normal left ventricular size. Mild mitral valve regurgitation. There is moderate tricuspid regurgitation. The estimated pulmonary arterial pressure is 40 mmHg. Brief History - From Admission 7830 last night, dizziness felt all weak cant stand' all over body was very weak, cant walk to bathroom had to help her bathroom felt so bad all night History from patient with family members at the bedside, ER physician communication, and review of medical records. Patient is an elderly lady who lives at home with her . She is awake, alert, oriented and sharp and is able to give most of her medical history. Patient reported that last night at around 10:30 PM, she just was not feeling well. She started feeling severe dizziness and severe muscle weakness all over her body. She stated that her had to help her go to bathroom and walk around and finally pretty bad. She stated she was not able to sleep even after this. She felt extremely weak and dizzy. She woke up a few times during the night and again had to hold her to get to bathroom. She is usually ambulatory without any assistance at her baseline. This morning, when she woke up, she still has the same symptoms and was not able to walk. has to help her with going to bathroom and bringing her food into the bed. Her kids and finally came over and when they saw her, they noted that she has left upper extremity weakness with slurred speech. The therefore called PCP office and was told to come to emergency room. drove her to the hospital. Patient reports that she currently is also still feeling quite dizzy and uncomfortable. She states she is sick to her stomach but she does not think that it was nausea. Apart from the above,patient denies any symptoms on review of system preceding last night's events. She has not driven lately though. She has had right ankle sprain about 8 weeks ago. CBC/BMP: 12/01/17 0940 12/01/17 0940 Significant Findings Laboratory Tests Test 12/01/17 09:40 12/01/17 18:55 12/02/17 07:10 Neutrophils (%) (Auto) 82.8 % (16.0-70.0) Lymphocytes # (Auto) 0.9 TH/MM3 (1.0-4.8) Activated Partial Thromboplast Time 24.0 SEC (24.3-30.1) Random Glucose 208 MG/DL (74-106) Estimat Glomerular Filtration Rate 73 ML/MIN (>89) Troponin I LESS THAN 0.02 NG/ML Urine Specific [place] 1.040 (1.002-1.035) Urine Glucose (UA) 300 mg/dL (NEG) Urine Ketones 40 mg/dL (NEG) Urine Mucus FEW /lpf (OCC) HDL Cholesterol 68.8 MG/DL (40.0-60.0) Imaging Last Impressions Brain MRI 12/02/17 0000 Signed Impressions: Service Date/Time: Saturday, December 02, 2017 15:07 - CONCLUSION: Subacute right hemispheric strokes. 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 2. No significant ventricular dilatation. 3. Left frontal encephalomalacia with overlying craniotomy defect. 4. No evidence of acute infarct, hemorrhage, mass or edema. Evan Bonilla MD Chest X-Ray 12/01/1748 Signed Impressions: Service Date/Time: Friday, December 01, 2017 10:48 - CONCLUSION: No acute disease. Elroy Maier MD Skull X-Ray 12/01/17 0000 Signed Impressions: Service Date/Time: Friday, December 01, 2017 19:30 - CONCLUSION: 1. Non-programmable shunt identified. George Stark MD Shunt Study (Imaging) 12/01/17 0000 Signed Impressions: Service Date/Time: Friday, December 01, 2017 10:45 - CONCLUSION: Intact shunt. Elroy Maier MD Neck CTA 12/01/17 0000 Signed Impressions: Service Date/Time: Friday, December 01, 2017 11:20 - CONCLUSION: Moderate focal stenosis involving the left proximal internal carotid artery approximately 2.4 cm distal to the bifurcation. Rios Walden MD Lower Extremity Ultrasound 12/01/17 Signed Impressions: Service Date/Time: Friday, December 01, 2017 15:18 - CONCLUSION: Normal examination. Alex Mitchell MD Head Magnetic Resonance Angiography 12/01/17 Signed Impressions: Service Date/Time: Friday, December 01, 2017 20:04 - CONCLUSION: 1. Mild to moderate stenosis of both proximal middle cerebral arteries. Questionable small 3 mm aneurysm near the right MCA trifurcation. This would be better evaluated with CTA. George Stark MD Head CTA 12/01/17 Signed Impressions: Service Date/Time: Friday, December 01, 2017 11:20 - CONCLUSION: Focal proximal occlusive disease involving one of the right MCA branch vessels. Mild intrinsic atherosclerotic vascular disease elsewhere. Alex Mitchell MD Carotid Artery Ultrasound 12/01/17 0000 Signed Impressions: Service Date/Time: Friday, December 01, 2017 14:06 - CONCLUSION: 1. Minimal heterogeneous plaque and intimal thickening characteristic of bilateral atherosclerotic disease. 2. No evidence of hemodynamically significant stenosis. 3. Antegrade flow both vertebral arteries. Evan Bonilla MD PE at Discharge GENERAL: AOx3, NAD. SKIN: Warm and dry. HEAD: Normocephalic. EYES: No scleral icterus. No injection or drainage. NECK: Supple, trachea midline. No JVD or lymphadenopathy. CARDIOVASCULAR: Regular rate and rhythm without murmurs, gallops, or rubs. RESPIRATORY: Breath sounds equal bilaterally. No accessory muscle use. GASTROINTESTINAL: Abdomen soft, non-tender, nondistended. MUSCULOSKELETAL: No cyanosis, or edema. Left arm 0/5, Right arm 5/5. Left lower ext 3/5, RLE 5/5. BACK: Nontender without obvious deformity. No CVA tenderness. Pt update on day of discharge Patient is doing well. She is still unable to move her left arm. No fever, chills. Family at bedside. Hospital Course Ms. Trujillo is a pleasant 77 year old female with a history of HTN, hypothyroidism who was admitted to the hospital due to dizziness, generalized weakness. She also had left sided weakness which prompted this hospital admission. Imaging studies indicated acute stroke in the right MCA area. 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 Bellamy (Neurology) following. I discussed with Dr. Bellamy. - Will switch to Low dose ASA and Plavix. Also start PPI. - Another MRI with and without contrast - shows subacute right MCA stroke and intraventricular mass. No change from previous study. - Continue PT, OT, Speech - Echo results reviewed - normal EF. Continue Telemetry. Holter monitor when discharged to [facility]. - Cardiology can be consulted while patient is at [facility] to obtain Loop recorder. - Discussed with patient's daughter at length regarding loop recorder. It can be obtained during this [place] admission or if it proves to be difficult, it can be done in the outpt setting. - Hypertension - Hypothyroidism - BP much improved after starting Nifedipine. - Continue Levothyroxine. Full code. Lovenox. Pt Condition on Discharge: Good Discharge Disposition: Rehab Inpatient Discharge Time: > 30 minutes Discharge Instructions DIET: Follow Instructions for: Heart Healthy Diet Activities you can perform: Regular-No Restrictions New Medications: Aspirin (Aspirin DR) 81 Mg Tabdr 81 MG PO DAILY for Blood Clot Prevention, #90 TAB Continue until end of January then stop Aspirin and just continue Plavix. Clopidogrel (Plavix) 75 Mg Tab 75 MG PO DAILY for Blood Clot Prevention, #90 TAB Nifedipine ER 24 HR (Nifedipine ER 24 HR) 30 Mg Tab 30 MG PO DAILY for Blood Pressure Management, #30 TAB Continued Medications: Cranberry (Vaccinium Macrocarpon) (Theracran Hp) 650 Mg Cap 1 CAP PO DAILY Estradiol-Dot Patch 84 HR (Vivelle-Dot Patch 84 HR) 0.05 Mg/24 Hr Patch 1 PATCH T-DERMAL 2XWEEK for Estrogen Supplements, #8 PATCH 0 Refills Remove old patch and discard when new patch being placed. Change same days each week. Levothyroxine (Synthroid) 75 Mcg Tab 75 MCG PO DAILY for Thyroid, #30 TAB 0 Refills Multiple Vitamins W/ Minerals (Centrum Silver) 1 Chw Chw 1 TAB PO DAILY Tetrahydrozoline Opth Drops (Tetrahydrozoline Opth Drops) 0.05 % Soln 1-2 DROP LEFT EYE QID PRN for Eye redness, #1 BOTTLE 0 Refills Kelsey Shah DO Dec 03, 2017 19:43
[2017-12-03] MEDS ORDERED: NIFE30TA8 PO (19:45)
== END 2017-12-03 15:00 | DRG 65 ==
LOC: NEPE 09:18 → NEDA 12:24 → N05A 13:49
PROVIDERS: ADMIT Hospitalist; ATTEND Hospitalist
DX: I63.511 Cerebral infarction due to unspecified occlusion or stenosis of right middle cerebral artery (principal); G91.2 (Idiopathic) normal pressure hydrocephalus; G81.94 Hemiplegia, unspecified affecting left nondominant side; R47.81 Slurred speech; Z98.2 Presence of cerebrospinal fluid drainage device; E11.9 Type 2 diabetes mellitus without complications; I10 Essential (primary) hypertension; E03.9 Hypothyroidism, unspecified; I34.1 Nonrheumatic mitral (valve) prolapse; E89.0 Postprocedural hypothyroidism; I65.29 Occlusion and stenosis of unspecified carotid artery; Z86.011 Personal history of benign neoplasm of the brain
CPT/HCPCS: 70250; 70450; 70496; 70498; 70544; 70551; 70553; 71045; 72040; 74018; 80053; 80061; 81001; 82550; 82948; 83036; 84484; 85025; 85610; 85730; 93005; 93306; 93880; 93970; 96365; 96375; A9579; J0360; J1650; J2405; J2765; J7030; J7042; Q9967